=== PATIENT | male | born 1990 | race African-American/Black ===

== ENCOUNTER 2017-05-02 04:12 | Emergency (ER) | payer OTHER ==
[~2017-05-02 04:12] MED LIST: ALBUTEROL MININEB NEB; ALBUTEROL17 GM INH; AMOXICILLIN500 M1 PO; ANTIBIOTIC; BACTRIM DS TABL1 TA1 PO; BENZONATATE PO; PHENERGAN/CODEIN5 ML PO; PREDNISONE PO; QVAR7.3 GM INH; ROBITUSSIN A-C10 ML PO; SINGULAIR PO; ZITHROMAX PO
== END 2017-05-02 05:29 | disposition home or self-care (01) ==
LOC: SED 04:12
DX: Z20.2 Contact with and (suspected) exposure to infections with a predominantly sexual mode of transmission (principal); J45.909 Unspecified asthma, uncomplicated; F17.200 Nicotine dependence, unspecified, uncomplicated
CPT/HCPCS: 96372; 99283; J0696

== ENCOUNTER 2017-06-16 02:17 | Emergency (ER) | payer OTHER ==
[~2017-06-16] VITALS: Ht 182.9 cm; Wt 63.5 kg
== END 2017-06-16 03:02 | disposition home or self-care (01) ==
LOC: SED 02:17
DX: J45.901 Unspecified asthma with (acute) exacerbation (principal); F17.210 Nicotine dependence, cigarettes, uncomplicated
CPT/HCPCS: 94640; 99284

== ENCOUNTER 2017-07-01 04:47 | Emergency (ER) | payer OTHER ==
[~2017-07-01] VITALS: Ht 182.9 cm; Wt 63.5 kg
== END 2017-07-01 05:11 | disposition home or self-care (01) ==
LOC: SED 04:47
DX: J45.901 Unspecified asthma with (acute) exacerbation (principal)
CPT/HCPCS: 99284